=== PATIENT | female | born 1950 | race Caucasian/White ===

== ENCOUNTER 2021-04-09 21:47 | Inpatient (IN) | payer MEDICARE, MEDICAID ==
[~2021-04-09] VITALS: Ht 172.7 cm; Wt 79.4 kg
--- NOTE | ~2021-04-09 | OP ---
PATIENT NAME: BRADLEY BARKLEY MEDICAL RECORD: [id number] :50 LOCATION:D.[facility] [id number] ADMISSION DATE:04/09/21 SURGEON: CLAUDINE WILDER, DATE OF OPERATION: 04/10/2021 PROCEDURE PERFORMED: Right reverse total shoulder arthroplasty. PREOPERATIVE DIAGNOSES: Severely comminuted and displaced right proximal humerus fracture. POSTOPERATIVE DIAGNOSES: Severely comminuted and displaced right proximal humerus fracture. INDICATIONS: Ms. Barkley is a 70-year-old female who has fallen several times fractured her right proximal humerus. She came to the ER yesterday after getting x-rays at home in [facility] and came here due to her daughter working here and she was admitted overnight and had a CT scan and saw there was severely comminuted multiple part fracture of the humeral head, proximal humerus. I then spoke to her this morning told her that a reverse total shoulder, probably the best option that she would have limited motion, increased risk for infection, bleeding, fracture, damage to nerves or vessels in the area continued pain, need for further surgery, failure of implants and she signed the consent. SURGEON: Claudine Wilder MD DESCRIPTION OF PROCEDURE: The patient received a block by anesthesia in preoperative area and taken to the operative suite, laid in supine position, given general anesthetic and LMA was placed. She was given 2 grams of Ancef and a gram of TXA. She was then sat in the beach chair position. The right shoulder was prepped and draped in sterile fashion. Timeout was performed. Everyone was in agreement with the correct side, site, patient, and procedure. I then began by making an incision over the deltopectoral interval, made careful dissection down to the cephalic vein. The cephalic vein was taken laterally. I then used a Winters to free up the deltoid adhesions and used the deltoid retractor. We then removed the proximal centimeter of the pec and tied the long head of the biceps tendon to the stump, put the long head biceps tendon and followed up into the joint. We then tagged the subscapularis tendon and peeled it off the fracture and removed the fracture. Took off essentially the whole head of the humerus, removed the other fracture fragments. I then exposed the glenoid, removed the labrum and put a centering pin and then reamed and impacted on the baseplate and removed the center pin. Then, measured it to be a 25 screw. A 25 screw was then put in the center, and three 25 screws around the periphery of the superior anterior, superior posterior and inferior posterior and inferior screws were all 25 locking screws. I then impacted on the glenosphere. I then exposed the humeral shaft and started reaming and broaching and she had very poor bone quality. We decided to use a fracture stem, was cemented at that time and then put in the cement restrictor, mixed the cement and put in the 8 stem. After put the cement in the canal and around the stem and removed the excess cement, it was then impacted in and got the height approximately 5.5 cm off of the insertion of the pack on the humerus with holding the retroversion off the forearm, held that in place while the cement dried. Once the cement had dried and hardened, I then trialed the tray with a standard and then a +3. A +3 did very well E-poly with retention bearing. I then reduced that and she had good range of motion. I then repaired the OPERATIVE REPORT [id number] BRADLEY BARKLEY supraspinatus and infraspinatus to the stem. I then irrigated with 10% povidone iodine and 500 mL of normal saline solution and irrigated that out with a liter normal saline. I then put in Yoko, vancomycin and tobramycin powder, put a drain put a drain exiting posteriorly. I then closed the skin with 2-0 Vicryl in inverted interrupted fashion, 4-0 Monocryl in the skin. She was then placed with Prineo glue and Telfa and Tegaderm and two Tegaderm holding the drain. She was awakened and taken to recovery in stable condition. BLOOD LOSS: Approximately 300 mL. COMPLICATIONS: None. TRANSINT:[id number] Voice Confirmation ID: [id number] DOCUMENT ID: [id number] CLAUDINE WILEDR DO CC: [id number] DICTATION DATE: 04/10/21 1302 [address] ENTERTAINER: 04/12/21 1746 ADM IN [facility] [address] [id number]
[~2021-04-09 21:47] MED LIST: ALBUTEROL INH; BENADRYL25 MG PO; CELEXA20 MG PO; COREG6.25 MG PO; CORICIDIN; DULCOLAX5 MG PO; GLUCOPHAGE500 MG PO; HYDROCODON-ACE1 EAC7 PO; K-DUR20 MEQ PO; LYRICA300 MG PO; MOBIC7.5 MG PO; SYMBICORT; SYMBICORT 16010.2 GM INH; ZANTAC150 MG PO
[2021-04-09] MEDS ORDERED: TRELEGY ELLIPT1 EACH INH (21:58)
[2021-04-09 23:16] VITALS: BP 128/51
[2021-04-09 23:39] LABS: BASOPHILS 0.8 % (0-2); CALC OSMOLALITY 286 mosm/kg (275-300); CALCIUM 9.7 mg/dL (8.5-10.1); CARBON DIOXIDE 23.1 mmol/L (21.0-32.0); CHLORIDE - SERUM 104 mmol/L (98-107); CREATININE - SERUM 1.3 mg/dL (0.6-1.3); EOSINOPHILS 0.5 % (0-7); GLUCOSE 102 mg/dL (74-106); HEMATOCRIT 41.1 % (36.0-48.0); HEMOGLOBIN 13.6 g/dL (12-16); LYMPHOCYTES 12.9 % (15-50); MCH 31.5 pg (26.0-34.0); MCHC 33.1 g/dL (31.0-37.0); MONOCYTES 8.6 % (2-11); NEUTROPHILS 77.2 % (40-80); POTASSIUM - SERUM 4.6 mmol/L (3.5-5.1); RBC 4.33 10x6/uL (4.00-5.40); RDW 13.7 % (11.5-14.5); SODIUM 139 mmol/L (136-145); UREA NITROGEN 37 mg/dL (7-18); WBC 9.4 10x3/uL (4.8-10.8); eGFR NON AFRICAN AMERICAN 43 mL/min (90-120)
[2021-04-09 23:44] LABS: PLATELET COUNT 196 10x3/uL (130-400)
[2021-04-09 23:54] LABS: ALBUMIN 3.7 g/dL (3.4-5.0); ALKALINE PHOSPHATASE 92 U/L (30-120); ALT (SGPT) 15 U/L (10-68); BILIRUBIN - TOTAL 0.33 mg/dL (0.2-1.3); CKMB 0.8 U/L (0.0-3.6); CREATINE KINASE 308 UL (21-215); MAGNESIUM - SERUM 2.1 mg/dL (1.8-2.4); PROTEIN - SERUM 7.2 g/dL (6.4-8.2)
[2021-04-09 23:59] LABS: TROPONIN-I < 0.017 ng/mL (0.000-0.060)
[2021-04-10] VITALS (12 sets, daily range): BP systolic 94–148; BP diastolic 39–61; BMI 26.6
[2021-04-10 00:46] LABS: APTT 25.8 SECONDS (22.8-39.4); INR 1.13 (0.85-1.17); PROTIME 13.5 SECONDS (11.6-15.0)
--- NOTE | 2021-04-10 00:50 | NUR ---
PLACED TELEMETRY PER ORDER.
--- NOTE | 2021-04-10 04:40 | NUR ---
COLLECTED URINE FOR ORDERED STUDIES AND DELIVERED TO LAB.
[2021-04-10 06:17] LABS: UDS - AMPHET NEGATIVE QUAL (NEGATIVE); UDS - BARB NEGATIVE QUAL (NEGATIVE); UDS - BENZO NEGATIVE QUAL (NEGATIVE); UDS - COCAINE NEGATIVE QUAL (NEGATIVE); UDS - OPIATE POSITIVE QUAL (NEGATIVE); UDS - PCP NEGATIVE QUAL (NEGATIVE); UDS - THC POSITIVE QUAL (NEGATIVE)
[2021-04-10 06:25] LABS: BILIRUBIN NEGATIVE (NEGATIVE); KETONE NEGATIVE (NEGATIVE); NITRITE NEGATIVE (NEGATIVE); UROBILINOGEN NORMAL mg/dL (< 2)
[2021-04-10 06:26] LABS: BACTERIA FEW HPF (NONE SEEN); SQUAMOUS EPITHELIAL 0-5 HPF (0-4)
[2021-04-10 06:26] LABS: BASOPHILS 0.8 % (0-2); EOSINOPHILS 0.8 % (0-7); HEMATOCRIT 38.5 % (36.0-48.0); HEMOGLOBIN 12.8 g/dL (12-16); LYMPHOCYTES 20.3 % (15-50); MCH 31.8 pg (26.0-34.0); MCHC 33.2 g/dL (31.0-37.0); MCV 95.7 fL (80.0-100.0); MEAN PLATELET VOLUME 9.3 fL (7.4-10.4); NEUTROPHILS 68.1 % (40-80); PLATELET COUNT 165 10x3/uL (130-400); RBC 4.02 10x6/uL (4.00-5.40); RDW 13.5 % (11.5-14.5); WBC 7.2 10x3/uL (4.8-10.8)
[2021-04-10 07:22] LABS: ALBUMIN 3.5 g/dL (3.4-5.0); ANION GAP 16.4 mmol/L (8-16); BILIRUBIN - TOTAL 0.35 mg/dL (0.2-1.3); CALCIUM 9.3 mg/dL (8.5-10.1); CREATININE - SERUM 1.1 mg/dL (0.6-1.3); POTASSIUM - SERUM 4.4 mmol/L (3.5-5.1); PROTEIN - SERUM 6.3 g/dL (6.4-8.2)
--- NOTE | 2021-04-10 08:00 | NUR ---
ASSESSMENT PER FLOW SHEET. PATIENT IS WITHOUT DISTRESS.CONSENTS TO CHART ORDERED. PAINMEDS ORDRED PER MAR FOR PAIN 8/10 TO RIGHT ARM. FALL PREVENTION WITH BED ALARM. SCD'S ON AND WORKING.
--- NOTE | 2021-04-10 10:15 | NUR ---
TO OR VIA BED.
--- NOTE | 2021-04-10 11:24 | NUR ---
CAUTERY PAD PLACED ON LEFT THIGH. PLASMA BLADE USED ON SETTING 6/8. AQUAMANTYS USED ON SETTING 170. CAUTERY PAD LOT#[id number] EXP. 09/13/2022
--- NOTE | 2021-04-10 13:20 | NUR ---
BCK FROM PACU VIA BED. PATIENT IS WITHOUT DISTRESS.VSS SEE GRAPHICS
--- NOTE | 2021-04-10 15:30 | NUR ---
HAS BEEN RESTING WITHOUT SIGNS OF PAIN. MONITOR FOR NEEDS
[2021-04-11] VITALS: BP 108/44
[2021-04-11 04:00] VITALS: BP 151/59
[2021-04-11 06:55] LABS: BASOPHILS 0.7 % (0-2); EOSINOPHILS 0.3 % (0-7); HEMATOCRIT 33.2 % (36.0-48.0); HEMOGLOBIN 11.2 g/dL (12-16); LYMPHOCYTES 19.6 % (15-50); MCH 32.4 pg (26.0-34.0); MCHC 33.7 g/dL (31.0-37.0); MCV 96.3 fL (80.0-100.0); MEAN PLATELET VOLUME 9.5 fL (7.4-10.4); MONOCYTES 10.8 % (2-11); NEUTROPHILS 68.6 % (40-80); PLATELET COUNT 155 10x3/uL (130-400); RBC 3.44 10x6/uL (4.00-5.40); WBC 7.7 10x3/uL (4.8-10.8)
[2021-04-11 07:12] LABS: ANION GAP 10.1 mmol/L (8-16); BILIRUBIN - TOTAL 0.4 mg/dL (0.2-1.3); CARBON DIOXIDE 26.3 mmol/L (21.0-32.0); CREATININE - SERUM 0.9 mg/dL (0.6-1.3); MAGNESIUM - SERUM 1.9 mg/dL (1.8-2.4); POTASSIUM - SERUM 4.4 mmol/L (3.5-5.1); PROTEIN - SERUM 6.4 g/dL (6.4-8.2)
[2021-04-11] MEDS ORDERED: HYDROCODON-ACE1 EA10 PO (07:12)
[2021-04-11 10:49] VITALS: BP 145/50
[2021-04-11 12:28] VITALS: BP 134/61
[2021-04-11 13:03] VITALS: Ht 172.7 cm; Wt 79.4 kg
--- NOTE | 2021-04-11 15:14 | MORECARE ---
CASE MANAGEMENT DISCHARGE SUMMARY PATIENT: BRADLEY POPE UNIT: [id number] ADM DATE: 04/09/21 AGE: 70 : 50 SEX: F ROOM/BED: D.2230 AUTHOR: HÉCTOR,DOC PHYSICIAN: REFERRING PHYSICIAN: CLAUDINE WORRELL MD DATE OF SERVICE: 04/11/21 Case Management Discharge Planning Summary DCP REVIEW SUMMARY ANTICIPATED D/C DATE: EXPECTED LOS : CASE STATUS: DCP Initiated INITIAL REVIEW: 04/10/2021 INITIAL REVIEWER: Nga Navarro FINAL DISCHARGE DISPOSITION: : FINAL REVIEWER: FINAL REVIEW DATE: DCP Focus Questions & Answers DCP Screen QUESTION: ANSWER Age: : 65 - 79 Prior living environment: : Lives with others Disability ranking: : Grade 4: Moderately severe disability DCP Evaluation QUESTION: ANSWER Patient's ability to cope with chronic illness : d. No chronic illness Would patient like to participate in any Care Coordination programs (if applicable): : Not applicable Mental health screen: : No mental health history DCP Re-evaluation QUESTION: ANSWER Would patient like to participate in any Care Coordination programs (if applicable): : Not applicable PATIENT: BRADLEY POPE ENCOUNTER: [id number] MEDICAL RECORD#: [id number] ADMISSION DATE: 04/09/2021 DISCHARGE DATE: ATTENDING MD: CLAUDINE ROMERO : AGE: 70 MARITAL STATUS: D DC PLAN ID: [id number] FACILITY: [facility] PRINTED ON: 04/11/21 15:14 CT All edits/amendments must be made on the electronic document DICTATION DATE: 04/11/211513 PADDING MACHINE OPERATOR: DM 04/11/21 1514 RPT#: [id number] DC DATE: STATUS: ADM IN [facility] [address] [place] [address] END OF REPORT
--- NOTE | 2021-04-11 15:28 | MORECARE ---
CASE MANAGEMENT DISCHARGE SUMMARY PATIENT: BRADLEY POPE UNIT: [id number] ADM DATE: 04/09/21 AGE: 70 : 50 SEX: F ROOM/BED: D.2230 AUTHOR: HÉCTOR,DOC PHYSICIAN: REFERRING PHYSICIAN: CLAUDINE WORRELL MD DATE OF SERVICE: 04/11/21 Case Management Discharge Planning Summary COMMENTS ENTERED DATE: 04/11/21 15:22 CT COMMENT TYPE: Discharge Planning REVIEWER: Nga Navarro CM MET WITH PATIENT ABOUT DC PLANNING NEEDS. PATIENT STATES WILL NEED REHAB BEFORE GOING HOME. PLANS TO GO TO INPATIENT REHAB HERE IF HER INSURANCE WILL APPROVE. IF INSURANCE DOES NOT APPROVE SHE IS AGREEABLE TO GO [facility]. WILL SIGNED AND PLACED IN CHART. HAS CAREGIVER OF BERE 11/06. I SPOKE WITH [facility] IN OUR INPATIENT REHAB AND THE OT EVAL IS PENDING AND THEY PLAN TO SUBMIT FOR AUTH TODAY. CM TO FOLLOW AND ASSIST NEEDED. DCP REVIEW SUMMARY ANTICIPATED D/C DATE: EXPECTED LOS : CASE STATUS: DCP Initiated INITIAL REVIEW: 04/10/2021 INITIAL REVIEWER: Nga Navarro FINAL DISCHARGE DISPOSITION: : FINAL REVIEWER: FINAL REVIEW DATE: DCP Focus Questions & Answers DCP Screen QUESTION: ANSWER Age: : 65 - 79 Prior living environment: : Lives with others Disability ranking: : Grade 4: Moderately severe disability DCP Evaluation QUESTION: ANSWER Patient and/or caregiver agree upon recommended discharge plan? : Yes Family / Caregiver's ability to cope with chronic illness: : a. Adequate (ability to meet patient's medical needs, ensures patient attends medical appts.) Patient's current cognitive status: : *Oriented to person, place, situation, time and present Patient's ability to cope with chronic illness : a. Adequate (0-3 ED visits in 6 mos., adequate financial resources, attends scheduled appts.) Alternate discharge plan (if recommended plan not agreed upon by patient and/or caregiver): : IF DENIED [facility] THEN WANTS [facility] Does the patient have the ability to pay for or attain post discharge needs / services? : Yes Functional screen assessment: : New onset in difficulty in gait, balance, or transfer difficulties Functional screen assessment: : Unable to manage ADLs without immediate ongoing assistance Family / Caregiver's ability to cope with chronic illness: : a. Adequate (ability to meet patient's medical needs, ensures patient attends medical appts.) Is there a likelihood that the patient will require additional services to return to the preadmission environment? : Yes Living Arrangements: : Home with others Results of this evaluation have been discussed with: : Patient Patient with capacity for self-care or can be cared for in same environment as prior to hospitalization? : No Living arrangements comments: : [facility] OF HER 11/06 Preadmission facility can/cannot provide post hospital level of care needs: : Cannot - at higher level of care than preadmission Planned post hospital services available for patient? : Yes Planned post hospital services covered by insurance plan? : Yes Would patient like to participate in any Care Coordination programs (if applicable): : Not applicable Does the patient have electricity at home? : Yes Does the patient have running water in their house? : Yes Other Equipment comments: : WC,BSC, CANE, OXYGEN,SC Equipment agency name and contact information: : [facility] [place] Mental health screen: : No mental health history DCP Re-evaluation QUESTION: ANSWER Would patient like to participate in any Care Coordination programs (if applicable): : Not applicable PATIENT: BRADLEY POPE ENCOUNTER: [id number] MEDICAL RECORD#: [id number] ADMISSION DATE: 04/09/2021 DISCHARGE DATE: ATTENDING MD: CLAUDINE ROMERO : AGE: 70 MARITAL STATUS: D DC PLAN ID: [id number] FACILITY: [facility] PRINTED ON: 04/11/21 15:28 CT All edits/amendments must be made on the electronic document DICTATION DATE: 04/11/21 152 ASSET MANAGEMENT COORDINATOR: DM 04/11/21 152 RPT#: [id number] DC DATE: STATUS: ADM IN [facility] [address] [place] [address] END OF REPORT
[2021-04-11 18:16] VITALS: BP 108/69
[2021-04-11 20:00] VITALS: BP 101/56
--- NOTE | 2021-04-11 20:00 | NUR ---
PT SITTING UP IN BED WITHOUT DISTRESS, AOX4. IV LEFT FA SL. RIGHT ARM TO SLING. ICE PACK PROVIDED FOR ARM. NORCO GIVEN FOR PAIN. PT DENIES OTHER NEEDS AT THIS TIME. CL IN REACH
[2021-04-12] VITALS: BP 122/68
[2021-04-12 04:00] VITALS: BP 118/53
[2021-04-12 05:59] LABS: BASOPHILS 0.9 % (0-2); EOSINOPHILS 1.6 % (0-7); HEMATOCRIT 34.6 % (36.0-48.0); HEMOGLOBIN 11.5 g/dL (12-16); LYMPHOCYTES 18.4 % (15-50); MCH 31.7 pg (26.0-34.0); MCHC 33.1 g/dL (31.0-37.0); MCV 95.5 fL (80.0-100.0); MEAN PLATELET VOLUME 9.5 fL (7.4-10.4); MONOCYTES 10.8 % (2-11); NEUTROPHILS 68.3 % (40-80); PLATELET COUNT 159 10x3/uL (130-400); RBC 3.62 10x6/uL (4.00-5.40); RDW 13.3 % (11.5-14.5); WBC 7.9 10x3/uL (4.8-10.8)
[2021-04-12 06:40] LABS: ALBUMIN 2.8 g/dL (3.4-5.0); ANION GAP 9.3 mmol/L (8-16); BILIRUBIN - TOTAL 0.51 mg/dL (0.2-1.3); CALCIUM 9.1 mg/dL (8.5-10.1); CARBON DIOXIDE 27.6 mmol/L (21.0-32.0); CREATININE - SERUM 0.9 mg/dL (0.6-1.3); MAGNESIUM - SERUM 1.6 mg/dL (1.8-2.4); POTASSIUM - SERUM 4.9 mmol/L (3.5-5.1); PROTEIN - SERUM 6.5 g/dL (6.4-8.2)
--- NOTE | 2021-04-12 08:51 | NUR ---
[facility] HAS BEEN CALLED FOR THE AUTH PROCESS TO START. REFERENCE #[id number]. I AM WAITING ON MY CALL TO TELL ME WHO TO FAX THE CLINICAL INFORMATION TO, AND THEN I WILL FAX IT. WE WILL WAIT ON INSURANCE DETERMINATION. SINA HAAS RN CLINICAL LIAISON, INPATIENT REHAB.
[2021-04-12 09:12] VITALS: BP 158/70
--- NOTE | 2021-04-12 11:36 | NUR ---
@1117, RECEIVED A VOICEMAIL FROM ELLIE WITH [facility]. SHE STATED THE REQUEST FOR INPATIENT REHAB HAS BEEN DENIED AND THE PATIENT CAN HAVE ALL HER NEEDS MET AT A LOWER LEVEL OF CARE, "LIKE A SNF FACILITY". PATIENT HAD ALREADY DECIDED TO GO TO [facility] JUST PRIOR TO THE AUTH PROCESS FOR INPATIENT PROCESS AND HAD DECIDED TO WAIT AND SEE WHAT HAPPENED. I AM SORRY THAT WE WERE UNABLE TO GET AUTH FOR IPR. THANK YOU AGAIN FOR THIS REFERRAL. SINA HAAS RN CLINICAL LIAISON, INPATIENT REHAB.
[2021-04-12 11:52] VITALS: BP 131/57
--- NOTE | 2021-04-12 15:23 | MORECARE ---
CASE MANAGEMENT DISCHARGE SUMMARY PATIENT: BRADLEY POPE UNIT: [id number] ADM DATE: 04/09/21 AGE: 70 : 50 SEX: F ROOM/BED: D.2230 AUTHOR: HÉCTOR,DOC PHYSICIAN: REFERRING PHYSICIAN: CLAUDINE WORRELL MD DATE OF SERVICE: 04/12/21 Case Management Discharge Planning Summary COMMENTS ENTERED DATE: 04/11/21 15:22 CT COMMENT TYPE: Discharge Planning REVIEWER: Nga Navarro CM MET WITH PATIENT ABOUT DC PLANNING NEEDS. PATIENT STATES WILL NEED REHAB BEFORE GOING HOME. PLANS TO GO TO INPATIENT REHAB HERE IF HER INSURANCE WILL APPROVE. IF INSURANCE DOES NOT APPROVE SHE IS AGREEABLE TO GO TO [facility]. WILL SIGNED AND PLACED IN CHART. HAS CAREGIVER OF BERE 11/06. I SPOKE WITH [facility] IN OUR INPATIENT REHAB AND THE OT EVAL IS PENDING AND THEY PLAN TO SUBMIT FOR AUTH TODAY. CM TO FOLLOW AND ASSIST NEEDED. DCP REVIEW SUMMARY ANTICIPATED D/C DATE: EXPECTED LOS : CASE STATUS: DCP Initiated INITIAL REVIEW: 04/10/2021 INITIAL REVIEWER: Nga Navarro FINAL DISCHARGE DISPOSITION: : FINAL REVIEWER: FINAL REVIEW DATE: DCP Focus Questions & Answers DCP Screen QUESTION: ANSWER Age: : 65 - 79 Prior living environment: : Lives with others Disability ranking: : Grade 4: Moderately severe disability DCP Evaluation QUESTION: ANSWER Patient and/or caregiver agree upon recommended discharge plan? : Yes Family / Caregiver's ability to cope with chronic illness: : a. Adequate (ability to meet patient's medical needs, ensures patient attends medical appts.) Patient's current cognitive status: : *Oriented to person, place, situation, time and present Patient's ability to cope with chronic illness : a. Adequate (0-3 ED visits in 6 mos., adequate financial resources, attends scheduled appts.) Alternate discharge plan (if recommended plan not agreed upon by patient and/or caregiver): : [facility] THEN [facility] Does the patient have the ability to pay for or attain post discharge needs / services? : Yes Functional screen assessment: : New onset in difficulty in gait, balance, or transfer difficulties Functional screen assessment: : Unable to manage ADLs without immediate ongoing assistance Family / Caregiver's ability to cope with chronic illness: : a. Adequate (ability to meet patient's medical needs, ensures patient attends medical appts.) Is there a likelihood that the patient will require additional services to return to the preadmission environment? : Yes Living Arrangements: : Home with others Results of this evaluation have been discussed with: : Patient Patient with capacity for self-care or can be cared for in same environment as prior to hospitalization? : No [facility] arrangements comments: [facility] Preadmission facility can/cannot provide post hospital level of care needs: : Cannot - at higher level of care than preadmission Planned post hospital services available for patient? : Yes Planned post hospital services covered by insurance plan? : Yes Would patient like to participate in any Care Coordination programs (if applicable): : Not applicable Does the patient have electricity at home? : Yes Does the patient have running water in their house? : Yes Other Equipment comments: : WC,BSC, CANE, OXYGEN,SC Equipment agency name and contact information: : [facility] Mental health screen: : No mental health history DCP Re-evaluation QUESTION: ANSWER Would patient like to participate in any Care Coordination programs (if applicable): : Not applicable PATIENT: BRADLEY POPE ENCOUNTER: [id number] MEDICAL RECORD#: [id number] ADMISSION DATE: 04/09/2021 DISCHARGE DATE: ATTENDING MD: CLAUDINE ROMERO : AGE: 70 MARITAL STATUS: D DC PLAN ID: [id number] FACILITY: [facility] PRINTED ON: 04/12/21 15:23 CT All edits/amendments must be made on the electronic document DICTATION DATE: 04/12/[address] ENGINEER: MELANIE 04/12/21 152 RPT#: [id number] DC DATE: STATUS: ADM IN [facility] [address] [place] [address] END OF REPORT
[2021-04-12 17:34] VITALS: BP 131/57
--- NOTE | 2021-04-12 17:59 | NUR ---
OT NOTE: PT RESTING THIS AFTERNOON.. REPORTED THAT THE PAIN IS BETTER THAN PREVIOUS DAY. BED MOB WITH MIN ASSIST. TOILET TRANSFER WITH USE OF CANE AND MIN ASSIST; MOD ASSIST WITH TOILET HYGIENE. ABLE TO WASH FACE WITH SET UP; MAX ASSIST TO NAINA SOCKS; IN ROOM AMBULATION WITH CANE AND MIN ASSIST. AKIKO MEDINA, OTR/L [phone]
[2021-04-12 20:00] VITALS: BP 109/48
--- NOTE | 2021-04-12 20:00 | NUR ---
PT SITTING UP IN BED WITHOUT DISTRESS, AOX4. REQUESTING MEDICATION TO HELP HAVE A BM. STATES [facility] IS NOT WORKING AND HAS NOT HAD BM SINCE SURGERY AND STATES IT HAS BEEN ABOUT 4-5 DAYS. CALLED [facility], ORDERS RECIEVED FOR SENOKOT, LACTULOSE AND MIRALAX AND ORDER A KUB IN AM. GAVE TO PT ORDERED. PT ALSO REQUESTED AND GIVEN NORCO FOR PAIN TO RIGHT SHOULDER 04/28. DENIES OTHER NEEDS AT THIS TIME. CL IN REACH
[2021-04-13] VITALS: BP 125/56
[2021-04-13 04:00] VITALS: BP 111/50
[2021-04-13 06:17] LABS: BASOPHILS 0.9 % (0-2); EOSINOPHILS 2.6 % (0-7); HEMATOCRIT 32.4 % (36.0-48.0); HEMOGLOBIN 10.9 g/dL (12-16); LYMPHOCYTES 24.2 % (15-50); MCH 31.7 pg (26.0-34.0); MCHC 33.6 g/dL (31.0-37.0); MCV 94.6 fL (80.0-100.0); MEAN PLATELET VOLUME 9.4 fL (7.4-10.4); MONOCYTES 10.5 % (2-11); NEUTROPHILS 61.8 % (40-80); PLATELET COUNT 137 10x3/uL (130-400); RBC 3.43 10x6/uL (4.00-5.40); RDW 12.9 % (11.5-14.5)
[2021-04-13 06:40] LABS: ALBUMIN 2.5 g/dL (3.4-5.0); ALKALINE PHOSPHATASE 112 U/L (30-120); ALT (SGPT) 34 U/L (10-68); BILIRUBIN - TOTAL 0.45 mg/dL (0.2-1.3); CALC OSMOLALITY 273 mosm/kg (275-300); CARBON DIOXIDE 28.6 mmol/L (21.0-32.0); CHLORIDE - SERUM 102 mmol/L (98-107); CREATININE - SERUM 0.8 mg/dL (0.6-1.3); GLUCOSE 115 mg/dL (74-106); MAGNESIUM - SERUM 1.7 mg/dL (1.8-2.4); POTASSIUM - SERUM 4.9 mmol/L (3.5-5.1); PROTEIN - SERUM 5.9 g/dL (6.4-8.2); SODIUM 136 mmol/L (136-145); UREA NITROGEN 15 mg/dL (7-18); eGFR NON AFRICAN AMERICAN 75 mL/min (90-120)
[2021-04-13 06:44] LABS: WBC 5.8 10x3/uL (4.8-10.8)
[2021-04-13 09:26] VITALS: BP 119/55
--- NOTE | 2021-04-13 13:47 | NUR ---
PRN NORCO 10 FOR PAIN.
[2021-04-13 14:41] VITALS: BP 124/52
--- NOTE | 2021-04-13 15:37 | MORECARE ---
CASE MANAGEMENT DISCHARGE SUMMARY PATIENT: BRADLEY POPE UNIT: [id number] ADM DATE: 04/09/21 AGE: 70 : 50 SEX: F ROOM/BED: D.2230 AUTHOR: HÉCTOR,DOC PHYSICIAN: REFERRING PHYSICIAN: CLAUDINE WORRELL MD DATE OF SERVICE: 04/13/21 Case Management Discharge Planning Summary COMMENTS ENTERED DATE: 04/11/21 15:22 CT COMMENT TYPE: Discharge Planning REVIEWER: Nga Navarro CM MET WITH PATIENT ABOUT DC PLANNING NEEDS. PATIENT STATES WILL NEED REHAB BEFORE GOING HOME. PLANS TO GO TO INPATIENT REHAB HERE IF HER INSURANCE WILL APPROVE. IF INSURANCE DOES NOT APPROVE SHE IS AGREEABLE TO GO TO [facility]. WILL SIGNED AND PLACED IN CHART. HAS CAREGIVER OF BERE 11/06. I SPOKE WITH [facility] IN OUR INPATIENT REHAB AND THE OT EVAL IS PENDING AND THEY PLAN TO SUBMIT FOR AUTH TODAY. CM TO FOLLOW AND ASSIST NEEDED. DCP REVIEW SUMMARY ANTICIPATED D/C DATE: EXPECTED LOS : CASE STATUS: DCP Initiated INITIAL REVIEW: 04/10/2021 INITIAL REVIEWER: Nga Navarro FINAL DISCHARGE DISPOSITION: : FINAL REVIEWER: FINAL REVIEW DATE: DCP Focus Questions & Answers DCP Screen QUESTION: ANSWER Age: : 65 - 79 Prior living environment: : Lives with others Disability ranking: : Grade 4: Moderately severe disability DCP Evaluation QUESTION: ANSWER Patient's ability to cope with chronic illness : a. Adequate (0-3 ED visits in 6 mos., adequate financial resources, attends scheduled appts.) Patient's current cognitive status: : *Oriented to person, place, situation, time and present Family / Caregiver's ability to cope with chronic illness: : a. Adequate (ability to meet patient's medical needs, ensures patient attends medical appts.) Patient and/or caregiver agree upon recommended discharge plan? : Yes Family / Caregiver's ability to cope with chronic illness: : a. Adequate (ability to meet patient's medical needs, ensures patient attends medical appts.) Functional screen assessment: : Unable to manage ADLs without immediate ongoing assistance Functional screen assessment: : New onset in difficulty in gait, balance, or transfer difficulties Does the patient have the ability to pay for or attain post discharge needs / services? : Yes Alternate discharge plan (if recommended plan not agreed upon by patient and/or caregiver): : IF DENIED [facility] THEN WANT[facility] Living Arrangements: : Home with others Is there a likelihood that the patient will require additional services to return to the preadmission environment? : Yes Living arrangements comments: : [facility] TAKES CARE OF HER 24/ Patient with capacity for self-care or can be cared for in same environment as prior to hospitalization? : No Results of this evaluation have been discussed with: : Patient Preadmission facility can/cannot provide post hospital level of care needs: : Cannot - at higher level of care than preadmission Planned post hospital services available for patient? : Yes Planned post hospital services covered by insurance plan? : Yes Would patient like to participate in any Care Coordination programs (if applicable): : Not applicable Does the patient have electricity at home? : Yes Does the patient have running water in their house? : Yes Other Equipment comments: : WC,BSC, CANE, OXYGEN,SC Equipment agency name and contact information: : [facility] Mental health screen: : No mental health history DCP Re-evaluation QUESTION: ANSWER Would patient like to participate in any Care Coordination programs (if applicable): : Not applicable PATIENT: BRADLEY POPE ENCOUNTER: [id number] MEDICAL RECORD#: [id number] ADMISSION DATE: 04/09/2021 DISCHARGE DATE: ATTENDING MD: CLAUDINE ROMERO : AGE: 70 MARITAL STATUS: D DC PLAN ID: [id number] FACILITY: [facility] PRINTED ON: 04/13/21 15:37 CT All edits/amendments must be made on the electronic document DICTATION DATE: 04/13/211536 MEDICAL SAFETY DIRECTOR: DM 04/13/21 153 RPT#: [id number] DC DATE: STATUS: ADM IN [facility] [address] [place] [address] END OF REPORT
[2021-04-13 17:41] VITALS: BP 120/60
[2021-04-13 20:00] VITALS: BP 121/53
--- NOTE | 2021-04-13 20:00 | NUR ---
PT SITTING UP IN BED WITHOUT DISTRESS, AOX4. STATES PAIN TO RIGHT ARM 5/10, GAVE NORCO ORDERED. PT GOT UP TO BEDSIDE COMMODE WITH ASSIST, HAD VERY LARGE BM. STATES THIS IS HER SECOND LARGE BM TODAY. ONCE BACK IN BED, PT DENIED OTHER NEEDS. CL IN REACH, BED ALARM ON
--- NOTE | 2021-04-13 22:02 | NUR ---
OT NOTE: PT COMPLETED SUPINE TO SIT WITH SBA. PT COMPLETED EOB SITTING WITH SPV. PT REQUIRED MOD A FOR POSITIONING UE SLING. PT COMPLETED SIT TO STAND WITH SBA. PT COMPLETED BED TO [facility] TSF WITH SBA-CGA. PT REQUESTED PAIN MED. NURSING NOTIFIED. CL WITHIN REACH. [id number] MARY LOU REYES COTA
[2021-04-14] VITALS: BP 109/55
[2021-04-14 04:00] VITALS: BP 117/53
--- NOTE | 2021-04-14 05:30 | NUR ---
PT GIVEN BED BATH AT THIS TIME. LINENS CHANGED. PROVIDED COFFEE. DENIES OTHER NEEDS. CL IN REACH
[2021-04-14 06:32] LABS: ALBUMIN 2.5 g/dL (3.4-5.0); ALKALINE PHOSPHATASE 158 U/L (30-120); BILIRUBIN - TOTAL 0.37 mg/dL (0.2-1.3); CALC OSMOLALITY 275 mosm/kg (275-300); CALCIUM 9.2 mg/dL (8.5-10.1); CARBON DIOXIDE 29.8 mmol/L (21.0-32.0); CHLORIDE - SERUM 101 mmol/L (98-107); CREATININE - SERUM 0.7 mg/dL (0.6-1.3); GLUCOSE 112 mg/dL (74-106); POTASSIUM - SERUM 5.1 mmol/L (3.5-5.1); SODIUM 137 mmol/L (136-145); UREA NITROGEN 14 mg/dL (7-18); eGFR NON AFRICAN AMERICAN 88 mL/min (90-120)
[2021-04-14 06:33] LABS: ALT (SGPT) 56 U/L (10-68); MAGNESIUM - SERUM 2.2 mg/dL (1.8-2.4)
[2021-04-14 07:20] LABS: BASOPHILS 0.9 % (0-2); HEMATOCRIT 32.3 % (36.0-48.0); HEMOGLOBIN 10.8 g/dL (12-16); LYMPHOCYTES 22.7 % (15-50); MCH 31.4 pg (26.0-34.0); MCHC 33.3 g/dL (31.0-37.0); MCV 94.4 fL (80.0-100.0); MEAN PLATELET VOLUME 9.6 fL (7.4-10.4); MONOCYTES 11.5 % (2-11); NEUTROPHILS 61.9 % (40-80); PLATELET COUNT 160 10x3/uL (130-400); RBC 3.43 10x6/uL (4.00-5.40); RDW 13.1 % (11.5-14.5); WBC 4.5 10x3/uL (4.8-10.8)
[2021-04-14 07:50] VITALS: BP 108/55
[2021-04-14 12:17] VITALS: BP 106/51
--- NOTE | 2021-04-14 13:38 | NUR ---
OT NOTE: PT COMPLETED SUPINE TO SIT WITH SBA-CGA. PT COMPLETED SIT TO STAND WITH SBA. PT COMPLETED ADL MOB WITH SBA-CGA. PT REQUIRED TOTAL A FOR NAINA-DOFF SOCKS. PT COMPLETED FACE HYGIENE WITH SETUP. [phone] THANK YOU,ZONIA FREDERICK
--- NOTE | 2021-04-14 13:38 | NUR ---
LARGE FRESH ICE WATER GIVEN TO PATIENT. PATIENT TO COMPLAIN OF RIGHT ARM PAIN, NO PAIN MEDS GIVEN WHEN EMAR LOOKED AT. NORCO 10 MG GIVEN FOR PAIN 05/28.
[2021-04-14 17:07] VITALS: BP 110/54
[2021-04-14 20:00] VITALS: BP 108/51
--- NOTE | 2021-04-14 20:00 | NUR ---
PT SITTING UP IN BED WITHOUT DISTRESS, AOX4. PT STATES PAIN 8/10, BUT STATES IT IS MORE FROM THE ARTHRITIS IN HER RIGHT THUMB THAN HER RIGHT SHOULDER. AFTER GIVEN PT A NORCO SHE REQUESTED IBUPROFEN. CALLED [facility] AND RECIEVED ORDERS FOR IBUPROFEN. GAVE ORDERED. PT DENIES OTHER NEEDS AT THIS TIME. CL IN REACH, BED ALARM ON
[2021-04-15] VITALS: BP 101/50
[2021-04-15 04:00] VITALS: BP 118/52
[2021-04-15 06:24] LABS: BASOPHILS 1.1 % (0-2); EOSINOPHILS 5.1 % (0-7); HEMATOCRIT 33.7 % (36.0-48.0); HEMOGLOBIN 10.9 g/dL (12-16); LYMPHOCYTES 32.2 % (15-50); MCH 31.1 pg (26.0-34.0); MCHC 32.4 g/dL (31.0-37.0); MCV 95.8 fL (80.0-100.0); MEAN PLATELET VOLUME 10.1 fL (7.4-10.4); NEUTROPHILS 45.6 % (40-80); PLATELET COUNT 156 10x3/uL (130-400); RBC 3.52 10x6/uL (4.00-5.40); RDW 13.4 % (11.5-14.5)
[2021-04-15 06:48] LABS: ALBUMIN 2.5 g/dL (3.4-5.0); ANION GAP 12.1 mmol/L (8-16); BILIRUBIN - TOTAL 0.29 mg/dL (0.2-1.3); CALCIUM 9.5 mg/dL (8.5-10.1); CARBON DIOXIDE 25.6 mmol/L (21.0-32.0); POTASSIUM - SERUM 4.7 mmol/L (3.5-5.1); PROTEIN - SERUM 6.5 g/dL (6.4-8.2)
[2021-04-15 06:49] LABS: CREATININE - SERUM 1.1 mg/dL (0.6-1.3)
[2021-04-15 06:51] LABS: WBC 3.2 10x3/uL (4.8-10.8)
--- NOTE | 2021-04-15 07:14 | NUR ---
PT SEEN. C/O DISCOMFORT IN RIGHT SHOULDER BUT TOO EARLY FOR PAIN MEDS AND PATIENT AWARE OF THIS. FRESH ICE BAG GIVEN TO RIGHT SHOULDER-DRESSING CLEAN DRY AND INTACT WITH RIGHT ARM IN SLING. OXYGEN AT 2L PER NC. FALL ALARM MEDICAL RECEPTIONIST BILLER LIGHT IN REACH
[2021-04-15 08:23] VITALS: BP 110/56
--- NOTE | 2021-04-15 10:22 | MORECARE ---
CASE MANAGEMENT DISCHARGE SUMMARY PATIENT: BRADLEY POPE UNIT: [id number] ADM DATE: 04/09/21 AGE: 70 : 50 SEX: F ROOM/BED: D.2230 AUTHOR: HÉCTOR,DOC PHYSICIAN: REFERRING PHYSICIAN: CLAUDINE WORRELL MD DATE OF SERVICE: 04/15/21 Case Management Discharge Planning Summary COMMENTS ENTERED DATE: 04/15/21 10:11 CT COMMENT TYPE: Discharge Planning REVIEWER: Nga Navarro CM SPOKE WITH [facility] AND SHE HAS SPOKE WITH THE INSURANCE COMPANY THIS MORNING AND ANTICIPATES AN ANSWER TODAY. ENTERED DATE: 04/11/21 15:22 CT COMMENT TYPE: Discharge Planning REVIEWER: Nga Navarro CM MET WITH PATIENT ABOUT DC PLANNING NEEDS. PATIENT STATES WILL NEED REHAB BEFORE GOING HOME. PLANS TO GO TO INPATIENT REHAB HERE IF HER INSURANCE WILL APPROVE. IF INSURANCE DOES NOT APPROVE SHE IS AGREEABLE TO GO TO [facility]. WILL SIGNED AND PLACED IN CHART. [facility] HAS CAREGIVER OF BERE 11/06. I SPOKE WITH [facility] IN OUR INPATIENT REHAB AND THE OT EVAL IS PENDING AND THEY PLAN TO SUBMIT FOR AUTH TODAY. CM TO FOLLOW AND ASSIST NEEDED. DCP REVIEW SUMMARY ANTICIPATED D/C DATE: EXPECTED LOS : CASE STATUS: DCP Initiated INITIAL REVIEW: 04/10/2021 INITIAL REVIEWER: Nga Navarro FINAL DISCHARGE DISPOSITION: : FINAL REVIEWER: FINAL REVIEW DATE: DCP Focus Questions & Answers DCP Screen QUESTION: ANSWER Age: : 65 - 79 Prior living environment: : Lives with others Disability ranking: : Grade 4: Moderately severe disability DCP Evaluation QUESTION: ANSWER Patient's ability to cope with chronic illness : a. Adequate (0-3 ED visits in 6 mos., adequate financial resources, attends scheduled appts.) Patient's current cognitive status: : *Oriented to person, place, situation, time and present Family / Caregiver's ability to cope with chronic illness: : a. Adequate (ability to meet patient's medical needs, ensures patient attends medical appts.) Patient and/or caregiver agree upon recommended discharge plan? : Yes Family / Caregiver's ability to cope with chronic illness: : a. Adequate (ability to meet patient's medical needs, ensures patient attends medical appts.) Functional screen assessment: : Unable to manage ADLs without immediate ongoing assistance Functional screen assessment: : New onset in difficulty in gait, balance, or transfer difficulties Does the patient have the ability to pay for or attain post discharge needs / services? : Yes Alternate discharge plan (if recommended plan not agreed upon by patient and/or caregiver): : IF DENIED [facility] THEN WANTS [facility] Living Arrangements: : Home with others Is there a likelihood that the patient will require additional services to return to the preadmission environment? : Yes Living arrangements comments: : [facility] TAKES CARE OF HER 11/06 Patient with capacity for self-care or can be cared for in same environment as prior to hospitalization? : No Results of this evaluation have been discussed with: : Patient Preadmission facility can/cannot provide post hospital level of care needs: : Cannot - at higher level of care than preadmission Planned post hospital services available for patient? : Yes Planned post hospital services covered by insurance plan? : Yes Would patient like to participate in any Care Coordination programs (if applicable): : Not applicable Does the patient have electricity at home? : Yes Does the patient have running water in their house? : Yes Other Equipment comments: : WC,BSC, CANE, OXYGEN,SC Equipment agency name and contact information: : [facility] Mental health screen: : No mental health history DCP Re-evaluation QUESTION: ANSWER Would patient like to participate in any Care Coordination programs (if applicable): : Not applicable PATIENT: BRADLEY POPE ENCOUNTER: [id number] MEDICAL RECORD#: [id number] ADMISSION DATE: 04/09/2021 DISCHARGE DATE: ATTENDING MD: CLAUDINE ROMERO : AGE: 70 MARITAL STATUS: D DC PLAN ID: [id number] FACILITY: [facility] PRINTED ON: 04/15/21 10:22 CT All edits/amendments must be made on the electronic document DICTATION DATE: 04/15/21 1022 SATELLITE INSTALLER: MELANIE 04/15/21 1022 RPT#: [id number] DC DATE: STATUS: ADM IN [facility] [address] [place] [address] END OF REPORT
[2021-04-15 12:19] VITALS: BP 111/55
[2021-04-15] MEDS ORDERED: NICODERM CQ1 EAC3 TOPICAL (15:56)
--- NOTE | 2021-04-15 16:39 | NUR ---
OT NOTE: PT COMPLETED SUPINE TO SIT WITH SBA. PT COMPLETED EOB SITTING WITH SPV. PT COMPLETED FACE HYGIENE WITH SETUP. PT COMPLETED HAIR GROOMING WITH SETUP. PT COMPLETED ADL MOB USING CANE WITH CGA. CL IN REACH..ALARM ON. [phone] THANKMARY LOU HAYDEN COTA
--- NOTE | 2021-04-15 17:11 | NUR ---
DC EDUCATION PROVIDED BOTH WRITTEN AND VERBAL. VERBALIZED UNDERSTANDING. DENIES FURTHER QUESTIONS. IV REMVOED FROM [facility] TIP INTACT. PATIENT UNABLE TO SIGN DC PAPERWORK D/T RIGHT ARM IN SLING. SIGNED BY TWO NURSES WITH PATIENT IN ROOM. PATIENT DENIES FURTHER NEEDS. WAITING TRANSPORT FROM [facility].
--- NOTE | 2021-04-15 17:16 | NUR ---
ATTEMPTED TO CALL REPORT TO [facility]. SPOKE WITH ANA, COMMUNITY HEALTH DIRECTOR, WHO ATTEMPTED TO TRANSFER CALL TO NURSES STATION FOUR TIMES WITH NO ANSWER. AFTER FOURTH TIME, ANA REQUESTED NURSE CALL BACK.
[2021-04-15 17:17] VITALS: BP 16/57
--- NOTE | 2021-04-15 18:50 | NUR ---
ATTEMPTED TO CALL REPORT AGAIN TO [facility] WITHOUT ANSWER ONCE AGAIN. TOLD ANA, CERTIFIED PEER SPECIALIST, TO LET NURSES ON FLOOR KNOW IF THEY WANT REPORT ON PATIENT, CALL BACK. STATES WILL NOTIFY.
[2021-04-15 21:43] VITALS: BP 115/53
--- NOTE | 2021-04-16 03:15 | NUR ---
I have reviewed this patient and I concur with the Shift Assessment completed by the Licensed Practical Nurse today this shift.
[2021-04-16 05:38] VITALS: BP 95/46
[2021-04-16 06:05] LABS: BASOPHILS 0.9 % (0-2); EOSINOPHILS 6.5 % (0-7); HEMATOCRIT 31.1 % (36.0-48.0); HEMOGLOBIN 10.2 g/dL (12-16); LYMPHOCYTES 27.6 % (15-50); MCH 31.1 pg (26.0-34.0); MCHC 32.8 g/dL (31.0-37.0); MEAN PLATELET VOLUME 9.5 fL (7.4-10.4); PLATELET COUNT 154 10x3/uL (130-400); RBC 3.28 10x6/uL (4.00-5.40); RDW 13.3 % (11.5-14.5); WBC 3.6 10x3/uL (4.8-10.8)
[2021-04-16 06:21] LABS: ALBUMIN 2.4 g/dL (3.4-5.0); ALKALINE PHOSPHATASE 172 U/L (30-120); ALT (SGPT) 39 U/L (10-68); BILIRUBIN - TOTAL 0.28 mg/dL (0.2-1.3); CALC OSMOLALITY 272 mosm/kg (275-300); CALCIUM 8.5 mg/dL (8.5-10.1); CARBON DIOXIDE 25.7 mmol/L (21.0-32.0); CHLORIDE - SERUM 102 mmol/L (98-107); GLUCOSE 117 mg/dL (74-106); POTASSIUM - SERUM 4.8 mmol/L (3.5-5.1); PROTEIN - SERUM 5.9 g/dL (6.4-8.2); SODIUM 135 mmol/L (136-145); UREA NITROGEN 17 mg/dL (7-18); eGFR NON AFRICAN AMERICAN 75 mL/min (90-120)
[2021-04-16 06:22] LABS: CREATININE - SERUM 0.8 mg/dL (0.6-1.3)
--- NOTE | 2021-04-16 09:00 | NUR ---
AAOX4 UPON ENTERING. ADMINISTERED MORNING MEDICATION AT THIS TIME, NO DIFFICULTIES. UPRIGHT IN BED EATING BREAKFAST. PRN NORCO FOR PAIN. DENIES FURTHER NEEDS. BED IN LOWEST POSITION, BED RAILS X2, CALL LIGHT WITHIN REACH. WILL CONTINUE POC. ASSESSMENT PERFORMED AT THIS TIME.
[2021-04-16 10:28] VITALS: BP 118/40
--- NOTE | 2021-04-19 08:25 | MORECARE ---
CASE MANAGEMENT DISCHARGE SUMMARY PATIENT: BRADLEY POPE UNIT: [id number] ADM DATE: 04/09/21 AGE: 70 : 50 SEX: F ROOM/BED: D.2230 AUTHOR: HÉCTRO,DOC PHYSICIAN: REFERRING PHYSICIAN: CLAUDINE WORRELL MD DATE OF SERVICE: 04/19/21 Case Management Discharge Planning Summary COMMENTS ENTERED DATE: 04/15/21 10:11 CT COMMENT TYPE: Discharge Planning REVIEWER: Nga Navarro CM SPOKE WITH [facility] AND SHE HAS SPOKE WITH THE INSURANCE COMPANY THIS MORNING AND ANTICIPATES AN ANSWER TODAY. ENTERED DATE: 04/11/21 15:22 CT COMMENT TYPE: Discharge Planning REVIEWER: Nga Navarro CM MET WITH PATIENT ABOUT DC PLANNING NEEDS. PATIENT STATES WILL NEED REHAB BEFORE GOING HOME. PLANS TO GO TO INPATIENT REHAB HERE IF HER INSURANCE WILL APPROVE. IF INSURANCE DOES NOT APPROVE SHE IS AGREEABLE TO GO TO [facility]. WILL SIGNED AND PLACED IN CHART. [facility] HAS CAREGIVER OF BERE 11/06. I SPOKE WITH [facility] IN OUR INPATIENT REHAB AND THE OT EVAL IS PENDING AND THEY PLAN TO SUBMIT FOR AUTH TODAY. CM TO FOLLOW AND ASSIST NEEDED. DCP REVIEW SUMMARY ANTICIPATED D/C DATE: EXPECTED LOS : CASE STATUS: DCP Initiated INITIAL REVIEW: 04/10/2021 INITIAL REVIEWER: Nga Navarro FINAL DISCHARGE DISPOSITION: : FINAL REVIEWER: FINAL REVIEW DATE: DCP Focus Questions & Answers DCP Screen QUESTION: ANSWER Age: : 65 - 79 Prior living environment: : Lives with others Disability ranking: : Grade 4: Moderately severe disability DCP Evaluation QUESTION: ANSWER Patient's ability to cope with chronic illness : a. Adequate (0-3 ED visits in 6 mos., adequate financial resources, attends scheduled appts.) Patient's current cognitive status: : *Oriented to person, place, situation, time and present Family / Caregiver's ability to cope with chronic illness: : a. Adequate (ability to meet patient's medical needs, ensures patient attends medical appts.) Patient and/or caregiver agree upon recommended discharge plan? : Yes Family / Caregiver's ability to cope with chronic illness: : a. Adequate (ability to meet patient's medical needs, ensures patient attends medical appts.) Functional screen assessment: : Unable to manage ADLs without immediate ongoing assistance Functional screen assessment: : New onset in difficulty in gait, balance, or transfer difficulties Does the patient have the ability to pay for or attain post discharge needs / services? : Yes Alternate discharge plan (if recommended plan not agreed upon by patient and/or caregiver): : IF DENIED [facility] THEN WANTS [facility] Living Arrangements: : Home with others Is there a likelihood that the patient will require additional services to return to the preadmission environment? : Yes Living arrangements comments: : BERE TAKES CARE OF HER 11/06 Patient with capacity for self-care or can be cared for in same environment as prior to hospitalization? : No Results of this evaluation have been discussed with: : Patient Preadmission facility can/cannot provide post hospital level of care needs: : Cannot - at higher level of care than preadmission Planned post hospital services available for patient? : Yes Planned post hospital services covered by insurance plan? : Yes Would patient like to participate in any Care Coordination programs (if applicable): : Not applicable Does the patient have electricity at home? : Yes Does the patient have running water in their house? : Yes Other Equipment comments: : WC,BSC, CANE, OXYGEN,SC Equipment agency name and contact information: : [facility] [place] Mental health screen: : No mental health history DCP Re-evaluation QUESTION: ANSWER Would patient like to participate in any Care Coordination programs (if applicable): : Not applicable PATIENT: BRADLEY POPE ENCOUNTER: [id number] MEDICAL RECORD#: [id number] ADMISSION DATE: 04/09/2021 DISCHARGE DATE: 04/16/2021 ATTENDING MD: CLAUDINE ROMERO : AGE: 70 MARITAL STATUS: D DC PLAN ID: [id number] FACILITY: [facility] PRINTED ON: 04/19/21 8:25 CT All edits/amendments must be made on the electronic document DICTATION DATE: 04/19/21824 PRESS CATCHER: MELANIE 04/19/21824 RPT#: [id number] DC DATE:04/16/21 STATUS: DIS IN [facility] [address] [place] [address] END OF REPORT
--- NOTE | 2021-04-19 09:49 | MORECARE ---
CASE MANAGEMENT DISCHARGE SUMMARY PATIENT: BRADLEY POPE UNIT: [id number] ADM DATE: 04/09/21 AGE: 70 : 50 SEX: F ROOM/BED: D.2230 AUTHOR: HÉCTOR,DOC PHYSICIAN: REFERRING PHYSICIAN: CLAUDINE WORRELL MD DATE OF SERVICE: 04/19/21 Case Management Discharge Planning Summary COMMENTS ENTERED DATE: 04/15/21 10:11 CT COMMENT TYPE: Discharge Planning REVIEWER: Nga Navarro CM SPOKE WITH [facility] AND SHE HAS SPOKE WITH THE INSURANCE COMPANY THIS MORNING AND ANTICIPATES AN ANSWER TODAY. ENTERED DATE: 04/11/21 15:22 CT COMMENT TYPE: Discharge Planning REVIEWER: Nga Navarro CM MET WITH PATIENT ABOUT DC PLANNING NEEDS. PATIENT STATES WILL NEED REHAB BEFORE GOING HOME. PLANS TO GO TO INPATIENT REHAB HERE IF HER INSURANCE WILL APPROVE. IF INSURANCE DOES NOT APPROVE SHE IS AGREEABLE TO GO TO [facility]. WILL SIGNED AND PLACED IN CHART. [facility] HAS CAREGIVER OF BERE 11/06. I SPOKE WITH [facility] IN OUR INPATIENT REHAB AND THE OT EVAL IS PENDING AND THEY PLAN TO SUBMIT FOR AUTH TODAY. CM TO FOLLOW AND ASSIST NEEDED. DCP REVIEW SUMMARY ANTICIPATED D/C DATE: EXPECTED LOS : CASE STATUS: DCP Initiated INITIAL REVIEW: 04/10/2021 INITIAL REVIEWER: Nga Navarro FINAL DISCHARGE DISPOSITION: : FINAL REVIEWER: FINAL REVIEW DATE: DCP Focus Questions & Answers DCP Screen QUESTION: ANSWER Age: : 65 - 79 Prior living environment: : Lives with others Disability ranking: : Grade 4: Moderately severe disability DCP Evaluation QUESTION: ANSWER Patient's ability to cope with chronic illness : a. Adequate (0-3 ED visits in 6 mos., adequate financial resources, attends scheduled appts.) Patient's current cognitive status: : *Oriented to person, place, situation, time and present Family / Caregiver's ability to cope with chronic illness: : a. Adequate (ability to meet patient's medical needs, ensures patient attends medical appts.) Patient and/or caregiver agree upon recommended discharge plan? : Yes Family / Caregiver's ability to cope with chronic illness: : a. Adequate (ability to meet patient's medical needs, ensures patient attends medical appts.) Functional screen assessment: : Unable to manage ADLs without immediate ongoing assistance Functional screen assessment: : New onset in difficulty in gait, balance, or transfer difficulties Does the patient have the ability to pay for or attain post discharge needs / services? : Yes Alternate discharge plan (if recommended plan not agreed upon by patient and/or caregiver): : IF DENIED [facility] THEN WANTS [facility] Living Arrangements: : Home with others Is there a likelihood that the patient will require additional services to return to the preadmission environment? : Yes Living arrangements comments: : [facility]ERE TAKES CARE OF HER 11/06 Patient with capacity for self-care or can be cared for in same environment as prior to hospitalization? : No Results of this evaluation have been discussed with: : Patient Preadmission facility can/cannot provide post hospital level of care needs: : Cannot - at higher level of care than preadmission Planned post hospital services available for patient? : Yes Planned post hospital services covered by insurance plan? : Yes Would patient like to participate in any Care Coordination programs (if applicable): : Not applicable Does the patient have electricity at home? : Yes Does the patient have running water in their house? : Yes Other Equipment comments: : WC,BSC, CANE, OXYGEN,SC Equipment agency name and contact information: : [facility] Mental health screen: : No mental health history DCP Re-evaluation QUESTION: ANSWER Would patient like to participate in any Care Coordination programs (if applicable): : Not applicable PATIENT: BRADLEY POPE ENCOUNTER: [id number] MEDICAL RECORD#: [id number] ADMISSION DATE: 04/09/2021 DISCHARGE DATE: 04/16/2021 ATTENDING MD: CLAUDINE ROMERO : AGE: 70 MARITAL STATUS: D DC PLAN ID: [id number] FACILITY: [facility] PRINTED ON: 04/19/21 9:49 CT All edits/amendments must be made on the electronic document DICTATION DATE: 04/19/2149 CONE MARKER: MELANIE 04/19/21 0949 RPT#: [id number] DC DATE:04/16/21 STATUS: DIS IN [facility] [address] [facility] [place] [address] END OF REPORT
== END 2021-04-16 10:42 | DRG 483 ==
LOC: D.ER 21:47 → D.MS 23:05
PROVIDERS: Family Medicine; Orthopaedic Surgery; Student in an Organized Health Care Education/Training Program; ADMIT Family Medicine; ATTEND Family Medicine
PROC: 0RRJ00Z Replacement of Right Shoulder Joint with Reverse Ball and Socket Synthetic Substitute, Open Approach (ICD-10-PCS; principal; 2021-04-10 10:05)
DX: S42.211A Unspecified displaced fracture of surgical neck of right humerus, initial encounter for closed fracture (principal); F17.203 Nicotine dependence unspecified, with withdrawal; S42.251A Displaced fracture of greater tuberosity of right humerus, initial encounter for closed fracture; W19.XXXA Unspecified fall, initial encounter; J44.9 Chronic obstructive pulmonary disease, unspecified; M19.90 Unspecified osteoarthritis, unspecified site; F32.9 Major depressive disorder, single episode, unspecified; F41.8 Other specified anxiety disorders; I10 Essential (primary) hypertension